=== PATIENT | female | born 1955 | race Caucasian/White ===

== ENCOUNTER 2021-01-10 13:08 | Emergency (ER) | payer MEDICARE, SELFPAY ==
[2021-01-10 13:09] VITALS: BP 165/101; PULSE 115; RESP 22; TEMP 36.6; O2SAT 97; BMI 78.2
--- NOTE | 2021-01-10 13:49 | EKG12_ITS ---
Test Reason : COMPLAINT Blood Pressure : / mmHG Vent. Rate : 078 BPM Atrial Rate : 078 BPM P-R Int : 154 ms QRS Dur : 092 ms QT Int : 380 ms P-R-T Axes : 052 016 030 degrees QTc Int : 433 ms Normal sinus rhythm Normal ECG Confirmed by KATIA MENDEZ, CELSA ([id number]), loan expeditor DAMIEN SORIA ([id number]) on 01/12/2021 12:34:08 PM Referred By: MR Confirmed By:CELSA MONTALVO MD
[2021-01-10 14:16] LABS: Bacteria 0 SEEN /hpf (None Seen); Mucous, Urine 0 SEEN /hpf (<or=2+); Red Blood Cells-Urine 0 SEEN /hpf (0-5); White Blood Cells 0 SEEN /hpf (0-5)
[2021-01-10 14:17] LABS: Color, Urine Yellow (Yellow); Glucose, Dipstick Normal (Normal); Ketone-Dipstick Negative (Negative); Leukocyte Esterase-Dipstick Negative /ul (Negative); Nitrite-Dipstick Negative (Negative); Occult Blood-Urine Negative /ul (Negative); Protein-Dipstick Negative (Negative); Specific Gravity, Urine 1.005 (1.002-1.030); Urine Bilirubin Dipstick Negative (Negative); Urine Clarity Clear (Clear); Urine Urobilinogen Normal (Normal)
[2021-01-10 14:23] LABS: Squamous Epithelial Cells - UA 0-5 SEEN /hpf (5-10)
[2021-01-10 14:26] LABS: Absolute Lymphocyte Count 1.53 X10^3/uL (0.83-4.51); Absolute Neutrophil Count 6.1 X10^3/uL (2.0-7.7); Basophil# 0.03 X10^3/uL; Basophil% 0.4 % (0-1); Eosinophil# 0.04 X10^3/uL; Eosinophils% 0.5 % (0-5); Hematocrit 47.4 % (37-47); Hemoglobin 15.8 g/dL (12.0-15.0); Lymphocyte # 1.53 X10^3/ul (0.83-4.51); Mean Corp Hgb Conc 33.3 g/dL (32-36); Mean Corpuscular Hgb 30.1 pg (27.0-32.0); Mean Corpuscular Volume 90.3 fL (81-99); Monocyte# 0.35 X10^3/uL; Monocyte% 4.3 % (0-10); NRBC Flagged by Analyzer 0 % (0-5); Neutrophil # 6.08 X10^3/uL (2.7-7.7); Neutrophil % 75.3 % (47-70); Platelet Count 191 K/mm3 (150-450); RBC Distribution Width CV 12.9 % (11.6-14.6); RBC Distribution Width SD 42.3 fl (35.1-43.9); Red Blood Count 5.25 M/mm3 (4.2-5.4); White Blood Count 8.1 K/mm3 (4.4-11.0)
[2021-01-10 14:50] LABS: Anion Gap 6 (5-15); BUN 11 mg/dL (7-18); BUN/Creat Ratio 13.4 RATIO (10-20); Calcium,Total 10.1 mg/dL (8.5-10.1); Chloride 107 mmol/L (98-107); Creatinine, Serum 0.82 mg/dL (0.55-1.02); EST Glomerular Filtration Rate 74 mL/min (>60); Est Glom Filt Rate - Afr Amer 90 mL/min (>60); Estimated Creatinine Clearance 63.18 ml/min; Glucose 111 mg/dL (74-106); Potassium 3.9 mmol/L (3.5-5.1); Sodium Level 141 mmol/L (136-145); Thyroid Stim Hormone (TSH) 2.48 uIU/mL (0.358-3.74); Troponin-I HS 3.7 pg/mL (3.0-53.7)
--- NOTE | 2021-01-10 15:16 | EDS_ITS ---
HPI History of Present Illness Chief Complaint: Complaint Narrative Narrative: Patient presenting with multiple complaints. First off patient states that she has been dealing with urinary frequency and dysuria since September. Patient states that she has been seen a number of times for this, typically does have a normal urinalysis and has not required antibiotics. Patient simply states that she has to go the bathroom very frequently. Patient denies that there is any sort of hematuria with this. No flank pain. No nausea or vomiting or fevers or other constitutional symptoms. Patient does report that she has been dealing with some constipation recently. Patient reports also that she has been dealing with right ear fullness and feelings of dizziness. This is associated with worsening with change in position and decreased hearing in the right ear, no tinnitus. She denies any visual changes numbness weakness or speech difficulty. [facility] Medical History Hypertension Hypothyroidism Home Medications amlodipine 5 mg PO BID 12/21/13 [History Last Taken Unknown] cyclobenzaprine 10 mg PO TID PRN #20 tablet 12/21/13 [Rx Last Taken Unknown] ergocalciferol (vitamin D2) [Vitamin D] 50,000 unit PO Q7D 12/21/13 [History Last Taken Unknown] irbesartan [Avapro] 300 mg PO DAILY 12/21/13 [History Last Taken Unknown] levothyroxine 150 mcg PO DAILY 12/21/13 [History Last Taken Unknown] omeprazole 20 mg PO BID 12/21/13 [History Last Taken Unknown] oxycodone-acetaminophen 1 - 2 tab PO Q4H PRN PRN #20 tab 12/21/13 [Rx Last Taken Unknown] sucralfate [Carafate] PRN 12/21/13 [History Last Taken Unknown] synthetic conj estrogens A [Cenestin] 0.625 mg PO DAILY 12/21/13 [History Last Taken Unknown] venlafaxine 37.5 mg PO DAILY 12/21/13 [History Last Taken Unknown] azelastine-fluticasone 1 spray INTRANASAL BID #23 g 01/10/21 [Rx Last Taken Unknown] hydrocortisone acetate 25 mg DC DAILY #1 ea 01/10/21 [Rx Last Taken Unknown] Allergy/AdvReac Type Severity Reaction Status Date / Time amoxicillin trihydrate Allergy Unknown Verified 01/10/21 13:09 [From Augmentin] cephalexin monohydrate Allergy Unknown Verified 01/10/21 13:09 [From Keflex] potassium clavulanate Allergy Unknown Verified 01/10/21 13:09 [From Augmentin] codeine AdvReac Other Verified 01/10/21 13:09 Social History Smoking Status: Never smoker ROS ROS ED Constitutional Constitutional ED: Denies chills or fever(s) ENT ENT ED: Reports ear pain Cardiovascular Cardiovascular: Denies chest pain Respiratory/Chest Respiratory/Chest: Denies cough or dyspnea Gastrointestinal Gastrointestinal: Reports constipation Genitourinary Genitourinary ED: Reports urinary frequency Musculoskeletal Musculoskeletal: Denies back pain Integumentary Denies rash Neurologic Neurologic: Reports other Details: Dizziness Psychiatric Psychiatric: Denies depression Endocrine Endocrinology: Denies fatigue Allergic/Immunologic Allergic/Immunologic ED: Denies urticaria EXAM Physical Exam Const Vital Signs: 01/10/21 13:09 01/10/21 15:27 Temperature 97.8 F Temperature Source Temporal Pulse Rate 115 H 80 Respiratory Rate 22 H 17 Blood Pressure 165/101 H 185/99 H Blood Pressure Mean 122 Pulse Ox 97 96 Oxygen Delivery Method Room Air Positive well nourished and well developed General Appearance ED: well developed and NAD HEENT Reports moist mucous membranes HEENT Narrative: Right TM does appear somewhat cloudy, but is not erythematous or bulging. Negative for trauma or tenderness Eyes EOMs intact bilaterally Eyes Narrative: No signs of nystagmus Neck no lymphadenopathy, supple and no JVD Chest Wall inspection of chest normal Resp normal respiratory effort and clear to auscultation bilaterally Cardio regular rate, regular rhythm, no murmurs and peripheral pulses 2+ throughout GI normal to inspection, nondistended, normoactive bowel sounds, non-tender and no masses Palpation: soft Back/Spine normal to inspection Extremity normal to inspection General Extremety ED: Negative for tenderness Neuro oriented x3 and no sensory deficits noted Neuro Narrative: No signs of ataxia, Scotty-Hallpike maneuvers found to be negative Sensorium / Orientation: alert Motor Exam: strength 5/5 throughout Psych mental status grossly normal Skin no rashes or lesions noted MDM MDM MDM Narrative Medical decision making narrative: Patient presented secondary to multiple complaints. Broad work-up was obtained. CBC unremarkable, modestly elevated hemoglobin at 15.8. Chemistry shows normal renal function normal electrolytes, troponin was negative TSH was found to be within normal limits, urinalysis was obtained was also found to be within normal limits. Patient's dizziness seems to stem from her right ear, I recommended that the patient be placed on a nasal decongestant and see her ear nose and throat. 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 Patient's urinary frequency does not seem to be associated with urinary tract infection, may be an element of an overactive bladder but nothing that requires further work-up currently. Patient will be given a referral to urology. Patient was discharged with reassurance. Lab Data Labs: Laboratory Results - last 24 hr 01/10/21 01/10/21 01/10/21 13:10 14:20 14:20 WBC 8.1 RBC 5.25 Hgb 15.8 H Hct 47.4 H MCV 90.3 MCH 30.1 MCHC 33.3 RDW Std Deviation 42.3 RDW Coeff of Alan 12.9 Plt Count 191 MPV 11.0 Immature Gran % (Auto) 0.500 Neut % (Auto) 75.3 H Lymph % (Auto) 19.0 [place] % (Auto) 4.3 Eos % (Auto) 0.5 Baso % (Auto) 0.4 Absolute Neuts (auto) 6.1 Absolute Lymphs (auto) 1.53 Nucleated RBC % 0 Sodium 141 Potassium 3.9 Chloride 107 Carbon Dioxide 28.0 Anion Gap 6 BUN 11 Creatinine 0.82 Estim Creat Clear Calc 63.18 Est GFR (MDRD) Af Amer 90 Est GFR (MDRD) Non-Af 74 BUN/Creatinine Ratio 13.4 Glucose 111 H Calcium 10.1 Troponin I High Sens 3.7 TSH 2.48 Urine Color Yellow Urine Clarity Clear Urine pH 7.0 Ur Specific [place] 1.005 Urine Protein Negative Urine Glucose (UA) Normal Urine Ketones Negative Urine Occult Blood Negative Urine Nitrite Negative Urine Bilirubin Negative Urine Urobilinogen Normal Ur Leukocyte Esterase Negative Urine RBC 0 SEEN Urine WBC 0 SEEN Ur Squamous Epith Cells 0-5 SEEN Urine Bacteria 0 SEEN Urine Mucus 0 SEEN EKG Initial EKG: Interpretation: Sinus Rhythm Discharge Plan Triage Chief Complaint: Complaint ED Provider: Nacho Sanchez Dx/Rx/DC Orders Clinical Impression: Vertigo, Urinary frequency Instructions: Overactive Bladder Syndrome (OAB), ED Dizziness, Uncertain Cause Prescriptions: New azelastine-fluticasone 137-50 mcg/spray spray,non-aerosol 1 spray intranasal BID Qty: 23 RF: 0 hydrocortisone acetate 25 mg suppository 25 mg DC DAILY Qty: 1 RF: 0 No Action venlafaxine 37.5 MG capsule,extended release 24hr 37.5 mg PO DAILY RF: 0 sucralfate [Carafate] 1 GM/10 ML suspension PRN (Reason: Pain) RF: 0 amlodipine 5 MG tablet 5 mg PO BID RF: 0 synthetic conj estrogens A [Cenestin] 0.625 MG tablet 0.625 mg PO DAILY RF: 0 levothyroxine 150 MCG tablet 150 mcg PO DAILY RF: 0 omeprazole 20 MG capsule 20 mg PO BID RF: 0 ergocalciferol (vitamin D2) [Vitamin D2] 50,000 UNIT capsule 50,000 unit PO Q7D RF: 0 irbesartan [Avapro] 300 MG tablet 300 mg PO DAILY RF: 0 cyclobenzaprine 10 MG tablet 10 mg PO TID PRN (Reason: Muscle Spasm) Qty: 20 RF: 0 oxycodone-acetaminophen 1 TABLET tablet 1 - 2 tab PO Q4H PRN PRN (Reason: Pain) Qty: 20 RF: 0 Primary Care Provider: Chiqui Arias Referrals: Dallin Rueda MD [STAFF PHYSICIAN] - 3-5 Days Irma Pagan MD [STAFF PHYSICIAN] - 3-5 Days Chiqui Arias MD [Primary Care Provider] - Disposition Disposition: Home, Self Care Discharge Date/Time: 01/10/21 15:33
[2021-01-10 15:27] VITALS: BP 185/99; PULSE 80; RESP 17; O2SAT 96
== END 2021-01-10 15:33 | disposition home or self-care (01) ==
PROVIDERS: Emergency Provider Emergency Medicine; PCP Internal Medicine
DX: R35.0 Frequency of micturition (principal); I10 Essential (primary) hypertension; E03.9 Hypothyroidism, unspecified; Z79.899 Other long term (current) drug therapy
CPT/HCPCS: 80048; 81001; 84443; 84484; 85025; 93005; 99284; A4216

== ENCOUNTER → 2021-01-25 08:21 | Outpatient (CLI) | payer MEDICARE, SELFPAY ==
[2021-01-10 13:09] VITALS: BMI 78.2
[2021-01-19 14:33] VITALS: BMI 78.2
--- NOTE | 2021-01-25 08:26 | CT_ITS ---
: EXAM DESCRIPTION: Unenhanced CT scan of the abdomen and pelvis CLINICAL HISTORY: 65 years Female, URGENCY ABD PAIN COMPARISON: None TECHNIQUE: A CT scan of the abdomen and pelvis was performed without IV contrast contrast administration. Oral contrast was not administered. Coronal and sagittal reconstruction images were reviewed. This exam was performed according to our departmental dose-optimization program, which includes automated exposure control, adjustment of the mA and/or kV according to patient size and/or use of iterative reconstruction technique. FINDINGS: The lung bases and the base of the heart are normal. A small sliding hiatal hernia is identified. The liver is normal.The spleen is normal.The adrenal glands are normal.The head, body, and tail of the pancreas are normal. The right and left kidneys were examined and appear to be normal. Both ureters appear to be normal, and no obstructive uropathy is identified. The abdominal aortal is normal along its course and distribution. No paraortic lymphadenopathy is seen. No abdominal masses or lesions are seen. The CT scan of the pelvis was then reviewed. The common iliac vessels, external iliac vessels, and common femoral vessels are normal along their course and distribution No pelvis masses or lesions are seen. The appendix is normal. No pericecal inflammatory reaction is seen. Bone scanning windows of the lumbar spine and pelvis were reviewed in the coronal and sagittal planes and appear to be normal. CT/Abdomen/Pelvis without Cont IMPRESSION: Normal unenhanced CT scan of the abdomen and pelvis. Electronically Signed: Jayson Lopes DO at 10:33 EDT Tel , Service support ,
== END ==
PROVIDERS: PCP Internal Medicine; Referring Provider Urology; Visit Provider Urology
DX: R10.30 Lower abdominal pain, unspecified (principal); R39.15 Urgency of urination; Z87.442 Personal history of urinary calculi
CPT/HCPCS: 74176

== ENCOUNTER 2021-03-01 05:57 | Day surgery (SDC) | payer MEDICARE, SELFPAY ==
[2021-01-19 14:33] VITALS: BMI 78.2
[2021-03-01] VITALS (7 sets, daily range): BP systolic 127–152; BP diastolic 75–104; PULSE 56–91; RESP 16; TEMP 36.4–37.2; O2SAT 95–97; BMI 35.4
--- NOTE | 2021-03-01 | BLA_PTH ---
PATIENT: IQRA PHILLIPS LOC: [facility] [place]#:[id number] AGE/SX: 65/F ROOM: RE03/01/[address]: Dr. Irma Pagan MD : 1955 BED: DIS: 03/01/2021 SPEC #: [id number] RECD: 03/01/21 11:30 STATUS: JOE CAVAZOS #: [id number] WILIAM: 03/01/21 00:[address]: Irma Pagan DEPT: SURGICAL PATHOLOGY RECD BY: Canelo Boyle ENTERED: 03/01/21 11:30 SP TYPE: BLADDER BX OTHR DR: Dr. Chiqui Arias MD Tissues: Urinary bladder, NOS Procedures: Surgery Specimen Level IV HEADER OPERATION: Bladder biopsy PRE-OP DIAGNOSIS: Neoplasm of bladder TISSUE SUBMITTED: Bladder biopsy, trigone MICROSCOPIC DIAGNOSIS Urinary bladder, trigone, biopsy: Chronic follicular cystitis. Cystitis cystica. AM;am 03/02/21 COMMENT Detrusor muscle proper is not present in the biopsy. MICROSCOPIC DESCRIPTION Slides are reviewed. GROSS DESCRIPTION Received is one container labeled with the patient name and designated bladder biopsy. The specimen consists of two irregular fragments of light torres soft tissue that in aggregate measure 0.3 X 0.3 x 0.2cms. The specimen is totally submitted in one cassette. / AM;am 03/01/21 TC:3 CPT:87889
[2021-03-01] MEDS: Lactated Ringers 1,000 ML 100 ML IV (06:15)
[2021-03-01] MEDS: Cefazolin 2 GM in 0.9% Normal Saline 100 ML IV (07:24)
--- NOTE | 2021-03-01 07:50 | PCM.OPRPT ---
Problems Associated Problem List Diagnoses (1) Lesion of urinary bladder: Report of Operation Date of Procedure: 03/01/21 Pre-Operative Diagnosis: bladder lesion Post-Operative Diagnosis: same Surgery/Procedure Performed:: cystoscopy, bladder biopsy with fulguration Surgeon: Irma Pagan Type of Anesthesia: MAC Specimen's removed: Bladder biopsy x2 Description of Procedure: The patient is a 65-year-old female who had a cystoscopy in the office and was found to have a 5 mm papillary lesion with white plaque on top on the area of the trigone. She now presents for excisional biopsy of this lesion with fulguration for tissue treatment and hemostatic control. Informed consent was obtained. The patient was taken to the operating room and placed on the operating room table. Anesthesia monitored the head, neck, airway, IV access and vital signs throughout the case. Once anesthesia was appropriately administered, the patient was placed into dorsal lithotomy position and was prepped and draped in usual sterile fashion. The cystoscope was inserted through the urethra under direct visualization into the urinary bladder. The bladder mucosa was once again visualized in its entirety and the only lesion identified was the one seen preoperatively. Biopsy forceps were used to remove this lesion in its entirety. Bugbee cautery was used for hemostatic control and tissue treatment. Once hemostasis was obtained, the patient's bladder was emptied and the case was terminated. She was awakened and taken to the recovery room in good condition. There were no complications during this procedure. Grafts/Implants Used: None Admit VTE Documentation VTE Present on Admission: Yes VTE Mechan Device Prophylaxis: SCD's VTE Pharm Prophylaxis ordered?: No Reason prophylaxis not ordered:: Treatment Not Indicated
--- NOTE | 2021-03-01 07:53 | DCINST_ITS ---
Discharge Instructions Diet Discharge Diet: No restrictions Activity Discharge Activity: Return to Normal Activity May resume sexual activity in: 1-2 weeks Dressing / Incision Call your doctor if you observe: Fever of 101 or Higher, Inability to urinate, Inability to have a bowel movement and Uncontrolled pain Follow Up Care Please Follow Up With: Irma Pagan MD When: In the office in 1 week, call for appointment Test Results: Test results from this visit will be discussed in further detail at your follow-up appointment, if applicable. Discharge Plan Admission Attending Provider: Irma Pagan Primary Care Provider: Chiqui Arias Discharge Orders/Prescriptions Prescriptions: New hydrocodone-acetaminophen [hydrocodone-acetaminophen] 1 TABLET tablet 1 tab PO Q4H PRN PRN (Reason: Pain) 7 Days Qty: 10 RF: 0 phenazopyridine [Pyridium] 200 MG tablet 200 mg PO TID PRN PRN (Reason: Bladder Spasms) 7 Days Qty: 30 RF: 0 nitrofurantoin monohyd/m-cryst [Macrobid] 100 mg capsule 100 mg PO BID Qty: 6 RF: 0 Continued omeprazole 20 mg capsule,delayed release(DR/EC) 20 mg PO DAILY RF: 0 (DME) Hydrocortisone 2.5% / Lidocaine 5% ointment (cmpd) Ointment See Rx Instructions .ROUTE .MEDSUPPLY Qty: 30 RF: 1 (DME) hydrocortisone 2.5%/lidocaine 5% suppository (compound) Suppository See Rx Instructions .ROUTE .MEDSUPPLY Qty: 30 RF: 1 irbesartan [Avapro] 300 MG tablet 150 mg PO BID RF: 0 levothyroxine [Synthroid] 125 mcg tablet 125 mcg PO DAILY RF: 0 mometasone [Nasonex] 50 mcg/actuation [place],Non-Aerosol 2 spray INTRANASAL DAILY RF: 0 hydrocortisone acetate 25 mg suppository 25 mg [place] DAILY RF: 0 Referrals / Follow Up: Chiqui Arias MD [Primary Care Provider] - Disposition Disposition (needs filled in before D/C Order can be placed): Home, Self Care
== END 2021-03-01 09:51 | disposition home or self-care (01) ==
LOC: SDC 05:59 → AC 05:59
PROVIDERS: PCP Internal Medicine; Referring Provider Urology; Visit Provider Urology
PROC: 0TBB8ZX Excision of Bladder, Via Natural or Artificial Opening Endoscopic, Diagnostic (ICD-10-PCS; CPT 52224; principal; 2021-03-01 07:20)
DX: N30.80 Other cystitis without hematuria (principal); K21.9 Gastro-esophageal reflux disease without esophagitis; I10 Essential (primary) hypertension; G25.81 Restless legs syndrome; E78.00 Pure hypercholesterolemia, unspecified; E03.9 Hypothyroidism, unspecified; R35.0 Frequency of micturition; R35.1 Nocturia; N39.41 Urge incontinence; R10.30 Lower abdominal pain, unspecified; K64.9 Unspecified hemorrhoids; D41.4 Neoplasm of uncertain behavior of bladder; Z79.899 Other long term (current) drug therapy; Z79.890 Hormone replacement therapy
CPT/HCPCS: 52224; 88305; J7120; J2405